=== PATIENT | male | born 1995 | race Caucasian/White ===

== ENCOUNTER 2021-10-12 05:48 | Day surgery (SDC) | payer OTHER ==
[~2021-10-12] VITALS: Ht 175.3 cm; Wt 97.0 kg
[~2021-10-12 05:48] MED LIST: MONTELUKAST SOD10 MG PO; NORCO 5-325 TA1 EACH PO; VENTOLIN HFA18 GM
--- NOTE | 2021-10-12 08:35 | NUR ---
10/12/21 0835 Uzma Sutherland 0828-PT TO PACU IN SUPINE POSITION. EYES CLOSED WITH ORAL AIRWAY IN PLACE. DOES NOT RESPOND TO VERBAL OR TACTILE STIMULI. BREATHING EASY AND UNLABORED. HOB ELEVATED. SP02 >95% ON 10 L VIA SIMPLE MASK. 0834- PT CONTINUES TO SLEEP WITH ORAL AIRWAY IN PLACE. DOES NOT RESPOND TO VERBAL OR TACTILE STIMULI. BREATHING EASY AND UNLABORED. SPO2 >95%. O2 TITRATED DOWN TO 6 LPM VIA SIMPLE MASK.
[2021-10-12] MEDS ORDERED: IBUPROFEN600 MG PO (08:42)
[2021-10-12] MEDS ORDERED: HYDROCODON-ACE1 EA10 PO (08:43)
[2021-10-12] MEDS ORDERED: ACETAMINOPHEN500 MG PO (08:43)
--- NOTE | 2021-10-12 09:50 | NUR ---
PATIENT ABLE TO VOID. 800 MLS OF YELLOW AND CLEAR URINE
--- NOTE | 2021-10-12 10:05 | NUR ---
PATIENT ASSESSMENT COMPLETE. PATIENT IS ALERT AND ORIENTED. BREATHING EQUAL AND UNLABORED. OXYGEN SATURATIONS AND RR WNL ON ROOM AIR. PATIENT SURGICAL SITE IS CLEAN, DRY AND INTACT. PATIENT WAS ABLE TO EAT, DRINK AND VOID. PATIENT DENIES ANY PAIN AT THIS TIME. PATIENT MET DISCHARGE CRITERIA. IV SITE PULLED WNL. EDUCATION UNDERSTOOD AND PAPERWORK GIVEN TO WILMA MONTENEGRO. PATIENT WAS WHEELED OUT IN WHEELCHAIR AND TOLERATED AMBULATION.
--- NOTE | 2021-10-16 14:35 | PATH ---
[facility] [address] [place], [place] [address] Signed SPECIMEN(S): A SOFT TISSUE MASS RIGHT POSTERIOR THORAX SPECIMEN SOURCE: A. SOFT TISSUE MASS RIGHT POSTERIOR THORAX CLINICAL HISTORY: No preop or clinical information is given on requisition. FINAL PATHOLOGIC DIAGNOSIS: Soft tissue mass, right posterior thorax, excision: - Lipoma. NAL:cml:C2NR MICROSCOPIC EXAMINATION: Histologic sections of all submitted blocks are examined by light microscopy. These findings, together with the gross examination, support the pathologic diagnosis. GROSS DESCRIPTION: The specimen, labeled "TR, A," and designated on the requisition "soft tissue mass, right posterior thorax," is received in formalin and consists of a ragged, partially thinly encapsulated, 11.6 g, 4.4 x 4.3 x 1.2 cm, yellow, lobulated, and rubbery tissue with a scant amount of attached grossly unremarkable fibromembranous tissue up to 0.5 cm wide. The external surface is inked blue and the specimen is cross-sectioned to reveal yellow, homogenous, and somewhat lobulated tissue. Brim Stretcher sections are submitted in three cassettes (A1-A3). AI (under the direct supervision of a pathologist) The Gross Description was prepared using a voice recognition system. The report was reviewed for accuracy; however, sound-alike word errors, addition and/or deletions may occur. If there is any question about this report, please contact Client Services. PERFORMING LABORATORY: The technical component was performed by [facility], [address] [place] [id number] ([employer] Laboratory Manager: Lizeth Roe MD; CLIA# [id number]). [facility], [address] [address] (CLIA# [id number]). PATIENT NAME: ANOOP ORTIZ PATHOLOGY DATE OF : [birth year] REPORT #: [id number] PHYSICIAN: YADIRA PATHOLOGY PCP: QUE CARTER REPORT IS CONFIDENTIAL AND NOT TO BE RELEASED WITHOUT AUTHORIZATION [address] [place] [address] Signed Diagnostician: Dagmar Joyner MD Pathologist Electronically Signed 10/16/2021 Copies: ~ PATIENT NAME: ANOOP ORTIZ PATHOLOGY DATE OF : [birth year] REPORT #: [id number] PHYSICIAN: YADIRA PATHOLOGY PCP: QUE CARTER REPORT IS CONFIDENTIAL AND NOT TO BE RELEASED WITHOUT AUTHORIZATION
--- NOTE | 2021-10-17 22:08 | OR ---
[facility] [address] [place], [place] [address] Signed DATE OF OPERATION: 10/12/2021 SURGEON: Jono Sagastume MD PREOPERATIVE DIAGNOSIS: Right posterior thorax soft tissue mass, probable lipoma (4 cm). POSTOPERATIVE DIAGNOSIS: Right posterior thorax soft tissue mass, probable lipoma (4 cm); subfascial adherent to dense fascia of latissimus dorsi. PROCEDURE: Excision of soft tissue mass, right posterior thorax subfascial 4 cm. ANESTHESIA: General endotracheal; Jono Park CRNA and local 20 mL of 0.25% Marcaine with epinephrine. INDICATION: This 26-year-old white man is a patient of Lynette Aj at [facility] He is identified as having a symptomatic posterior thorax soft tissue mass. Clinical examination shows it to possibly be rather deep. An ultrasound was performed confirming probable lipoma. He is admitted at this time to undergo excision of the mass, understands the risks of bleeding, infection, cosmetic deformity, recurrence, and other unforeseen complications. FINDINGS: Indeed it was a lipoma and benign in its appearance. It was rather adherent to the fascia of the latissimus dorsi and below Joan's layer. It was excised completely. There were no complications. DESCRIPTION OF PROCEDURE: The patient was brought to the operating room, given a general endotracheal anesthetic and placed in the prone dali-knife position with careful padding of all pressure points. The posterior thorax in the midportion was prepared with a chlorhexidine solution and draped sterilely. A transverse incision was made directly over the area. Dissection carried through the dermis with electrocautery. Further dissection was undertaken showing a lipomatous mass. It was multilobulated and rather firm and rubbery. It extended below Joan's fascia and was densely adherent to the fascia of the latissimus dorsi. With electrocautery, it was excised completely from the area. A 20 mL of 0.25% Electronically Signed By: JONO SAGASTUME MD 10/17/21 2208 PATIENT NAME: ANOOP ORTIZ OPERATIVE REPORT DATE OF : [birth year] REPORT #: [id number] PHYSICIAN: JONO SAGASTUME MD PCP: QUE CARTER REPORT IS CONFIDENTIAL AND NOT TO BE RELEASED WITHOUT AUTHORIZATION [facility] [address] [place], [place] [address] Signed Marcaine with epinephrine was injected locally. The wound was closed in layers with interrupted 2-0 Vicryl in deep fascial layer and running subcuticular 3-0 Vicryl for the skin. Steri-Strips were applied as was Acticoat dressing. The patient tolerated the procedure well, was extubated after being returned to the supine position and taken to the recovery room in good condition. Sponge, needle, and instrument counts were reported as correct x3. MD MICHAEL Calle/MARCELINOL /[id number] Copies: ~ Electronically Signed By: JONO SAGASTUME MD 10/17/21 2208 PATIENT NAME: ANOOP ORTIZ JAKE OPERATIVE REPORT DATE OF : [birth year] REPORT #: [id number] PHYSICIAN: JONO SAGASTUME MD PCP: QUE CARTER REPORT IS CONFIDENTIAL AND NOT TO BE RELEASED WITHOUT AUTHORIZATION
== END 2021-10-12 10:05 | disposition home or self-care (01) ==
LOC: DS 05:48
PROVIDERS: ATTEND Surgery
PROC: 0JB60ZZ Excision of Chest Subcutaneous Tissue and Fascia, Open Approach (ICD-10-PCS; principal; 2021-10-12 06:45)
DX: D17.1 Benign lipomatous neoplasm of skin and subcutaneous tissue of trunk (principal); J45.20 Mild intermittent asthma, uncomplicated; Z88.0 Allergy status to penicillin; Z88.8 Allergy status to other drugs, medicaments and biological substances
CPT/HCPCS: 00300; J0330; J1100; J1644; J1885; J2250; J2405; J2704; J2765; J3010; J7121